=== PATIENT | female | born 1990 | race Caucasian/White ===

== ENCOUNTER 2022-02-21 12:17 | Inpatient (IN) ==
[2022-02-21 14:16] LABS: Basophils # 0.1 10*3/uL (0.0-0.2); Basophils % 0.4 % (0.0-0.8); Eosinophils # 0.1 10*3/uL (0.0-0.87); Eosinophils % 0.6 % (0.00-10.9); Hematocrit 32.6 VOL% (35.7-47.0); Hemoglobin 11.1 GM/DL (12.0-16.0); Immature Granulocytes % 3.4 %; Immature Granulocytes Absolute 0.46 #; Lymphocytes # 1.7 10*3/uL (1.4-4.0); Lymphocytes % 12.5 % (21.3-54.2); Mean Corpuscular Volume 93.4 FL (87-102); Mean Platelet Volume 10.8 FL (9.6-12.0); Monocytes # 1.1 10*3/uL (0.11-0.8); Monocytes % 8.1 % (1.7-12.7); Platelet Count 155 T/CUMM (130-400); Red Blood Count 3.49 MC/CUMM (3.8-5.5); Red Cell Distribution Width 12.5 % (9.3-17.3); White Blood Count 13.5 T/CUMM (4-12)
[2022-02-21] MEDS: LACTATED RINGERS 1,000 ML IV SCH (16:04)
[2022-02-22] MEDS ORDERED: ceFAZolin 2,000 MG/50 ML DUPLEX IV ONE (06:00)
[2022-02-22] MEDS ORDERED: OXYTOCIN/LR 20 UNIT/1,000 ML BAG IV ONE ×2 (06:00→10:27)
[2022-02-22] MEDS ORDERED: CARBOPROST TROMETHAMINE 250 MCG/ML AMP IM PRN (06:00)
[2022-02-22] MEDS ORDERED: miSOPROStoL 200 MCG TABLET RECTAL PRN (06:00)
[2022-02-22] MEDS ORDERED: TRANEXAMIC ACID 1,000 MG in SODIUM CHLORIDE 0.9% 100 ML IV PRN (06:00)
[2022-02-22] MEDS ORDERED: METHYLERGONOVINE 0.2 MG/1 ML AMP IM PRN (06:00)
[2022-02-22] MEDS ORDERED: CITRIC ACID/SODIUM CITRATE 30 ML UDCUP PO ONE (06:00)
[2022-02-22] MEDS ORDERED: FAMOTIDINE 20 MG/2 ML VIAL IV ONE (06:00)
[2022-02-22] MEDS: LACTATED RINGERS 1,000 ML IV SCH (07:06)
[2022-02-22] MEDS ORDERED: BUPIVACAINE SPINAL 0.75% 2 ML AMP SPINAL ONE (07:26)
[2022-02-22] MEDS ORDERED: buprenorphine HCL 0.3 MG/ML VIAL ONE (07:27)
[2022-02-22] MEDS ORDERED: ONDANSETRON 4 MG/2 ML VIAL ONE (07:33)
[2022-02-22] MEDS ORDERED: ACETAMINOPHEN INJ 1,000 MG/100 ML VIAL IV ONE (07:35)
[2022-02-22] MEDS ORDERED: propofoL 200 MG/20 ML VIAL IV ONE (08:30)
[2022-02-22] MEDS ORDERED: SUCCINYLCHOLINE 200 MG/10 ML VIAL ONE (08:30)
[2022-02-22] MEDS ORDERED: PHENYLEPHRINE 1 MG/10 ML SYRINGE IV ONE ×2 (08:38→08:59)
[2022-02-22 08:43] LABS: Cord Arterial Blood HCO3 24.8 MMOL/L
[2022-02-22 08:44] LABS: Bilirubin,Urine Negative (Negative); Blood, Urine Negative (Negative); Glucose,Urine (UA) Negative (Negative); Ketones,Urine >160 mg/dL (Negative); Mucus,Urine Occasional /LPF (Occasional); Nitrite,Urine Negative (Negative); Protein,Urine Negative (Negative); RBC,Urine 2 /HPF (0-4); Squamous Epithelial Cell,Urine Occasional /HPF (0-10); Urine Appearance Clear (Clear); Urine Color Yellow (Yellow); Urine Urobilinogen 0.2 eU/dL (<2.0); Urine pH 8.5 (4.5-8.0)
[2022-02-22] MEDS ORDERED: LIDOCAINE 2% 5 ML VIAL ONE (08:45)
[2022-02-22 08:46] LABS: Cord Venous Blood HCO3 25.6 MMOL/L; Cord Venous Blood PCO2 43.3 MMHG; Cord Venous Blood PO2 50.8
[2022-02-22] MEDS ORDERED: SEVOFLURANE 1 UNIT/15 MINUTE INH ONE (08:49)
[2022-02-22] MEDS ORDERED: HYDROmorphone 1 MG/1 ML SYRINGE IV PRN (09:47)
[2022-02-22] MEDS ORDERED: ONDANSETRON 4 MG/2 ML VIAL IV PRN (10:27)
[2022-02-22] MEDS ORDERED: MAGNESIUM HYDROXIDE SUSP 30 ML UDCUP PO PRN (10:27)
[2022-02-22] MEDS ORDERED: ACETAMINOPHEN 325 MG TABLET PO PRN (10:27)
[2022-02-22] MEDS ORDERED: RHO(D) IMMUNE GLOBULIN 300 MCG SYRINGE IM ONE (10:27)
[2022-02-22] MEDS ORDERED: MEPERIDINE 50 MG/1 ML VIAL IV PRN (12:09)
[2022-02-22] MEDS ORDERED: ACETAMINOPHEN 500 MG TABLET PO SCH (14:30)
[2022-02-22] MEDS: IBUPROFEN 800 MG TABLET PO PRN (15:50)
[2022-02-22] MEDS: DOCUSATE SODIUM 100 MG CAPSULE PO SCH (22:00)
[2022-02-23 04:27] LABS: Basophils # 0.1 10*3/uL (0.0-0.2); Basophils % 0.3 % (0.0-0.8); Eosinophils % 0.2 % (0.00-10.9); Hematocrit 28.4 VOL% (35.7-47.0); Hemoglobin 9.8 GM/DL (12.0-16.0); Immature Granulocytes % 1.8 %; Immature Granulocytes Absolute 0.32 #; Lymphocytes # 1.4 10*3/uL (1.4-4.0); Lymphocytes % 7.7 % (21.3-54.2); Mean Corpuscular HGB Conc 34.5 GM/DL (32-36); Mean Corpuscular Volume 92.5 FL (87-102); Mean Platelet Volume 10.9 FL (9.6-12.0); Monocytes # 1.4 10*3/uL (0.11-0.8); Monocytes % 7.9 % (1.7-12.7); Neutrophils % 82.1 % (38.7-73.9); Platelet Count 176 T/CUMM (130-400); Red Blood Count 3.07 MC/CUMM (3.8-5.5); Red Cell Distribution Width 12.6 % (9.3-17.3); White Blood Count 17.6 T/CUMM (4-12)
[2022-02-23] MEDS: DOCUSATE SODIUM 100 MG CAPSULE PO SCH ×3 (07:39→23:24)
[2022-02-23] MEDS: SIMETHICONE CHEW 80 MG TABLET PO PRN ×2 (07:39→16:11)
[2022-02-23] MEDS: MULTIVITAMIN (PRENATAL) TABLET PO SCH ×2 (07:40→09:46)
[2022-02-23] MEDS: IBUPROFEN 800 MG TABLET PO PRN ×3 (07:40→23:05)
[2022-02-24] MEDS: DOCUSATE SODIUM 100 MG CAPSULE PO SCH (08:31)
[2022-02-24] MEDS: MULTIVITAMIN (PRENATAL) TABLET PO SCH (08:31)
[2022-02-24] MEDS: IBUPROFEN 800 MG TABLET PO PRN (10:11)
[2022-02-24 13:10] VITALS: BP 131/70
== END 2022-02-24 18:05 | disposition home or self-care (01) | DRG 788 ==
LOC: N.LDOUT 12:17 → N.LD 12:20 → N.OB 02-22 11:02
PROVIDERS: ADMIT Obstetrics & Gynecology; ATTEND Obstetrics & Gynecology
PROC: LDCSECT (ICD-10-PCS; 2022-02-22 07:00)